=== PATIENT | female | born 1985 | race Caucasian/White ===

== ENCOUNTER 2023-04-25 17:00 | Inpatient (IN) | payer SELFPAY ==
[~2023-04-25] VITALS: Ht 167.6 cm; Wt 98.0 kg
[2023-04-25 19:36] LABS: HEMATOCRIT 36.2 % (35.0-50.0); HEMOGLOBIN 11.8 g/dL (12.0-18.0); MCHC 32.5 g/dl (30-36); MCV 89.4 fl (81-99); RBC 4.05 M/ul (4.3-5.7)
[2023-04-25 19:48] VITALS: BP 113/60
[2023-04-25 20:10] LABS: ABO O; ANTIBODY SCREEN NEGATIVE; RH POSITIVE
[2023-04-25 22:31] VITALS: BP 127/74
--- NOTE | 2023-04-25 22:42 | NUR ---
04/25/232241 Shawnee Hernández 213 PT ARRIVED IN PACU WIDE AWAKE ASKING FOR WATER. [facility] RN GIVING PT SIPS OF WATER. 2144 MOM BREAST FEEDING BABY WITH HELP FROM [facility] RN. AT BEDSIDE. 2147 C/O FEELING DIZZY, VITAL SIGNS TAKEN. LAYING IN SEMI RUST POSITION. NO NEW ORDERS. 2154 DIZZINESS GONE. CONTINUES TO BREAST FEED BABY. 2202 REPORT GIVEN TO [facility] RN. BED PLUGGED IN. SPOUSE AT BEDSIDE.
[2023-04-26 05:10] LABS: HEMATOCRIT 33.7 % (35.0-50.0); HEMOGLOBIN 11.2 g/dL (12.0-18.0); MCH 29.3 (27-36); MCHC 33.2 g/dl (30-36); MCV 88.5 fl (81-99); RBC 3.81 M/ul (4.3-5.7); RDW 14.9 (10.5-15.0)
--- NOTE | 2023-04-26 08:22 | PR ---
[facility] [address] [place], [place] [address] Signed PP Progress Notes Datetime Report Generated by AMY: 04/26/2023 08:22 SUBJECTIVE: [id number] Pain: Within Normal Limits Nausea/Vomiting: Denies Vital Signs: [id number] Vital Signs: Reviewed; Within Normal Limits Cardiovascular: Normal Respiratory: Normal Abdomen/Uterus: Abnormal Lochia: Normal Vulva/Perineum: Not Done Breasts: Not Done CVA Tenderness: Not Done Extremities: Normal Incision: Normal Progress: Abnormal Exam Comments: Abdomen with active BS. Fundus firm, NT @ U+1. H/H 11.2/33.7, WBC 13.3, plat 157k IMPRESSION/PLAN/PROCEDURES: [id number] Impression: Normal Progression; Difficulties Plan: Consult Procedures: None Progress Notes: Doing well overall other than her breast feeding. Will try for consult today. Signing Physician: Kimberlyn Estrada MD Copies: ~ *Electronically Signed* 04/26/23 0822 KIMBERLYN ESTRADA MD PATIENT NAME: ANA CLEMENSFERNANDO AMADOR PROGRESS NOTE DATE OF : 89 PHYSICIAN: KIMBERLYN ESTRADA MD RPT #: [id number] REPORT IS CONFIDENTIAL AND NOT TO BE RELEASED WITHOUT AUTHORIZATION
--- NOTE | 2023-04-26 08:40 | OR ---
[facility] [address] [place], [place] [address] Signed DATE OF OPERATION: 04/25/2023 SURGEON: Kimberlyn Estrada MD FAN MAIL CLERK: Jareth dowling DO PREOPERATIVE DIAGNOSIS: Term , previous section, active labor. POSTOPERATIVE DIAGNOSIS: Term , previous section, active labor, delivered. PROCEDURE: Repeat section with low segment transverse uterine incision. ANESTHESIA: Spinal. ESTIMATED BLOOD LOSS: 750 mL. DRAINS: Dejesus catheter. INDICATIONS AND FINDINGS: The patient is a 37-year-old female 5, para 3, SAB 1, admitted at 38 and 5/7th weeks in early active labor. The patient had been scheduled for in two days. The status was very reassuring. She had made cervical change. Decision was made to proceed with section. She was taken to the operating room where she was delivered of a little boy via lower segment transverse uterine incision from the ROT position with Apgars of 9 and 9 and weight of 10 pounds. The uterus and placenta were normal. The right tube and ovary were normal. The left tube and ovary were absent from prior surgery. PROCEDURE IN DETAIL: The patient was prepped and draped in the supine position. A repeat Pfannenstiel skin incision was made and carried down through the fascia. The incision was extended laterally. The inferior and superior fascial flaps were created. The peritoneum was opened sharply at this point, and the incision extended bluntly. The Pepe retractor Electronically Signed By: KIMBERLYN ESTRADA MD 04/26/23 0840 PATIENT NAME: KATERINE CLEMENS OPERATIVE REPORT DATE OF : 89 REPORT #: [id number] PHYSICIAN: KIMBERLYN ESTRADA MD PCP: NO PRIMARY CARE PHYSICIAN REPORT IS CONFIDENTIAL AND NOT TO BE RELEASED WITHOUT AUTHORIZATION [facility] [address] [place], [place] [address] Signed was placed and the uterine incision was made at the upper aspect of the peritoneal reflection. The baby was delivered with the above findings and handed off to the pediatric staff in attendance. The placenta was removed manually. The uterus was explored with a lap tape assuring no remaining fragments. The edges of the incision were identified and the uterus was closed in 2 layers using 0 Monocryl. The first layer was a running locking stitch and 2nd was a vertical imbricating stitch. An additional [id number] was required near the left angle for control of bleeding with an [place] stitch. Several additional [id number] were required in the midportion of the incision for control of bleeding. The abdomen was then irrigated, inspected and bleeding points were controlled with cautery. The incision did appear to be hemostatic. The Pepe retractor was removed and Rhoda was sprinkled over the incision to further aid in hemostasis. The peritoneum was identified. The peritoneum closed with a running suture of 3-0 Vicryl. The muscles were brought together with interrupted sutures of 0 Vicryl. Bleeding points were controlled with cautery. This area was irrigated and inspected and good hemostasis was noted. The remaining Rhoda was sprinkled over the muscles. The fascia was then closed from each angle to the midline with a running suture of 0 Vicryl. The subcu space was irrigated and bleeding points controlled with cautery. The deep space was closed with interrupted sutures of 3-0 Vicryl. The skin was closed with valorie. All sponge and needle counts were correct. She tolerated the procedure well and was taken to the recovery room in good condition. Kimberlyn sEtrada MD PJW/MODL /[id number] Copies: ~ Electronically Signed By: KIMBERLYN ESTRADA MD 04/26/23 0840 PATIENT NAME: KATERINE CLEMENS OPERATIVE REPORT DATE OF : 89 REPORT #: [id number] PHYSICIAN: KIMBERLYN ESTRADA MD PCP: NO PRIMARY CARE PHYSICIAN REPORT IS CONFIDENTIAL AND NOT TO BE RELEASED WITHOUT AUTHORIZATION
--- NOTE | 2023-04-27 08:27 | PR ---
[facility] [place] [facility] [address] [facility] [place], [place] [address] Signed PP Progress Notes Datetime Report Generated by CPBeryl: 04/27/2023 08:27 SUBJECTIVE: [id number] Pain: Within Normal Limits Nausea/Vomiting: Denies Flatus: Yes Vital Signs: [id number] Vital Signs: Reviewed; Within Normal Limits Cardiovascular: Not Done Respiratory: Not Done Abdomen/Uterus: Abnormal Lochia: Normal Vulva/Perineum: Not Done Breasts: Not Done CVA Tenderness: Not Done Extremities: Normal Incision: Normal Progress: Not Applicable Exam Comments: Abdomen with active BS. Fundus firm, NT @ U+1. IMPRESSION/PLAN/PROCEDURES: [id number] Impression: Normal Progression Plan: Remove Corrina; Discharge Procedures: None Progress Notes: Doing well. Desires D/C. Signing Physician: Kimberlyn Estrada MD Copies: ~ *Electronically Signed* 04/27/23826 KIMBERLYN ESTRADA MD PATIENT NAME: KATERINE CLEMENS PERRY PROGRESS NOTE DATE OF : 89 PHYSICIAN: KIMBERLYN ESTRADA MD RPT #: [id number] REPORT IS CONFIDENTIAL AND NOT TO BE RELEASED WITHOUT AUTHORIZATION
== END 2023-04-27 15:55 | disposition home or self-care (01) | DRG 788 ==
LOC: FBCO 17:00 → FBC 19:14 → FBCO 05-03 12:06
PROVIDERS: ADMIT Obstetrics & Gynecology; ATTEND Obstetrics & Gynecology
PROC: 4A1HXCZ Monitoring of Products of Conception, Cardiac Rate, External Approach (ICD-10-PCS; 2023-04-25)
PROC: 10D00Z1 Extraction of Products of Conception, Low, Open Approach (ICD-10-PCS; principal; 2023-04-25 20:01)
DX: O34.211 Maternal care for low transverse scar from previous cesarean delivery (principal); Z3A.38 38 weeks gestation of pregnancy; Z37.0 Single live birth; Z88.0 Allergy status to penicillin
CPT/HCPCS: 01961; 36415; 76942; 85027; 86850; 86900; 86901; A9270; J0131; J0690; J1100; J2001; J2274; J2371; J2405; J2590; J2795; J3010; J7121